=== PATIENT | female | born 2000 | race Caucasian/White ===

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

== ENCOUNTER → 2020-01-10 | Outpatient (REF) | payer OTHER ==
[2020-01-10 13:16] LABS: BASO # 0.1 10^3/uL (0.0-0.2); BASO % 0.7 % (0.0-1.0); EOS # 0.2 10^3/uL (0.0-0.5); EOS % 1.8 % (0.0-3.0); HEMATOCRIT 41.1 % (36.0-47.0); HEMOGLOBIN 12.8 g/dl (12.0-15.5); LYMPH # 2.9 10^3/uL (1.5-5.0); LYMPH % 34.7 % (24.0-44.0); MEAN CORPUSCULAR HEMOGLOBIN 25.6 pg (27.0-33.0); MEAN CORPUSCULAR HGB CONC 31.1 g/dl (32.0-36.5); MEAN CORPUSCULAR VOLUME 82.2 fl (80.0-96.0); MONO # 0.6 10^3/uL (0.0-0.8); MONO % 6.7 % (0.0-5.0); NEUTROPHILS # 4.7 10^3/uL (1.5-8.5); NEUTROPHILS % 55.9 % (36.0-66.0); PLATELET COUNT, AUTOMATED 274 10^3/uL (150-450); WHITE BLOOD COUNT 8.3 10^3/uL (4.0-10.0)
[2020-01-10 13:29] LABS: ALBUMIN 4.2 GM/DL (3.2-5.2); ALT/SGPT 16 U/L (12-78); BILIRUBIN,TOTAL 0.6 MG/DL (0.2-1.0); BLOOD UREA NITROGEN 12 MG/DL (7-18); CALCIUM LEVEL 9.7 MG/DL (8.5-10.1); CARBON DIOXIDE LEVEL 27 MEQ/L (21-32); CHLORIDE LEVEL 107 MEQ/L (98-107); CREATININE FOR GFR 0.67 MG/DL (0.55-1.30); GLUCOSE, FASTING 90 MG/DL (70-100); POTASSIUM SERUM 4.5 MEQ/L (3.5-5.1); RHEUMATOID FACTOR QUANT < 10.0 IU/ML (<15.0); SODIUM LEVEL 139 MEQ/L (136-145); THYROID STIMULATING HORMONE 0.619 uIU/ML (0.463-3.98); TOTAL PROTEIN 7.9 GM/DL (6.4-8.2)
[2020-01-10 13:35] LABS: ERYTHROCYTE SEDIMENTATION RATE 4 mm/hr (0-20)
[2020-01-11 14:12] LABS: ANTINUCLEAR ANTIBODIES DIRECT Negative (Negative)
== END ==
LOC: M LABDRWAD 12:21
PROVIDERS: ATTEND Psychiatry & Neurology Neurology
DX: R51 Headache (principal)

== ENCOUNTER → 2020-02-27 | Outpatient (CLI) | payer OTHER ==
[~2020-02-27] MED LIST changes: -ISOVUE-370 76% 100ML VIAL (Q9967) As Ordered ONE; +MAGICMW SSP; +NAPR-837 PO; +NEXP1IMP SC; +PARO20TA4 PO; +ZONI25CA13 PO
== END ==
LOC: M LABSMTC 11:41
PROVIDERS: ATTEND Family Medicine
DX: Z11.59 Encounter for screening for other viral diseases (principal)
CPT/HCPCS: C9803; U0003

== ENCOUNTER 2020-02-28 19:10 | Emergency (ER) | payer OTHER ==
[~2020-02-28] VITALS: Ht 160 cm; Wt 60.9 kg
[2020-02-28] MEDS ORDERED: PARO20TA4 PO (19:20)
[2020-02-28] MEDS ORDERED: ZONI25CA13 PO (19:20)
[2020-02-28] MEDS ORDERED: NEXP1IMP SC (19:21)
[2020-02-28] MEDS ORDERED: MAGIC MOUTHWASH SUSPENSION BTL SS STA (19:53)
[2020-02-28] MEDS ORDERED: NAPROXEN 250 MG TAB PO ONE (20:00)
[2020-02-28 20:28] LABS: BASO % 0.9 % (0.0-1.0); EOS # 0.1 10^3/uL (0.0-0.5); EOS % 2.5 % (0.0-3.0); HEMATOCRIT 38.8 % (36.0-47.0); HEMOGLOBIN 12.5 g/dl (12.0-15.5); LYMPH % 44.9 % (24.0-44.0); MEAN CORPUSCULAR HEMOGLOBIN 25.7 pg (27.0-33.0); MEAN CORPUSCULAR HGB CONC 32.2 g/dl (32.0-36.5); MEAN CORPUSCULAR VOLUME 79.8 fl (80.0-96.0); MONO # 0.5 10^3/uL (0.0-0.8); MONO % 10.9 % (0.0-5.0); NEUTROPHILS # 1.8 10^3/uL (1.5-8.5); NEUTROPHILS % 40.3 % (36.0-66.0); PLATELET COUNT, AUTOMATED 263 10^3/uL (150-450); RED BLOOD COUNT 4.86 10^6/uL (4.00-5.40); WHITE BLOOD COUNT 4.4 10^3/uL (4.0-10.0)
[2020-02-28 21:00] LABS: MONO SCRN NEGATIVE (NEGATIVE)
[2020-02-28] MEDS ORDERED: NAPR-837 PO (21:28)
[2020-02-28] MEDS ORDERED: MAGICMW SSP (21:28)
[2020-02-28 22:01] VITALS: BP 111/69
--- NOTE | 2020-02-29 08:22 | REP ---
Portable chest x-ray: Single view. History: Shortness of breath. Findings: The lungs are well inflated and clear. The pleural angles are sharp. Heart size is normal. Pulmonary vasculature is not increased. No significant bony abnormality is seen. Impression: Negative portable chest x-ray. Electronically Signed by Faisal Walsh MD 02/29/2020 08:13 A
== END 2020-02-28 22:02 | disposition home or self-care (01) ==
LOC: M ED 19:10
DX: R59.0 Localized enlarged lymph nodes (principal); R07.0 Pain in throat; R06.02 Shortness of breath

== ENCOUNTER → 2021-03-05 | Outpatient (REF) | payer OTHER | LOC: M SFHCADAM 10:40 | PROVIDERS: ATTEND Family Medicine | DX: J02.9 Acute pharyngitis, unspecified (principal) ==

== ENCOUNTER → 2021-04-12 | Outpatient (REF) | payer OTHER | LOC: M SFHCADAM 14:40 | PROVIDERS: ATTEND Physician Assistant Medical | DX: J02.9 Acute pharyngitis, unspecified (principal); R53.83 Other fatigue ==

== ENCOUNTER → 2021-06-23 | Outpatient (CLI) | payer OTHER | LOC: M LABSMTC 11:31 | PROVIDERS: ATTEND Anesthesiology | DX: Z11.52 Encounter for screening for COVID-19 (principal); Z20.822 Contact with and (suspected) exposure to COVID-19 ==

== ENCOUNTER 2021-06-28 09:48 | Day surgery (SDC) | payer OTHER ==
[~2021-06-28] VITALS: Ht 162.6 cm; Wt 69.9 kg
[~2021-06-28 09:48] MED LIST changes: +PAXI10TA12 PO
--- OUTSIDE RECORDS SUMMARY | 2021-06-28 09:56 | CCD ---
Author Author [facility] Organization [facility] Address Unknown Phone Unavailable Care Team Providers Care Tender Labor Name Role Phone Aurelia Powers Unavailable PROBLEMS Type Condition ICD9-CM Code QRH62-PR Code Onset Dates Condition S tatus W/U Status Risk SNOMED Code Notes Problem Depression, unspecified depression type F32.9 Active confirmed 25629069 Problem Gastroesophageal reflux dise ase, unspecified whether esophagitis present K21.9 Active confirmed 684851400 Problem Insomnia, unspecified type G47.00 Active confirmed 613275693 Problem Primary insomnia F51.01 Active confirmed 397 2004 ALLERGIES Allergen (clinical drug ingredient) Drug/Non Drug Allergy do cumented on EMR Reaction Allergy Type Onset Date Status [place] strawberry oral discomfort Non Drug Allergy Act adam oranges oral discomfort Non Drug Allergy Act adam ENCOUNTERS from 2000 to 2021-04-19 Encounter Location Date Provider Diagnosis [address] [place] [address] Apr, Aurelia Powers Pharyngitis, unspecified etiology J02.9 ; Strep pharyngitis J02.0 and Fatigue, unspecified type R53.83 IMMUNIZATIONS Vaccine Route Administration Date Status Hepatitis B Ped & Adol 0.5mL Engerix-B Unknown January 22 001 Administered Hepatitis B Ped & Adol 0.5mL Engerix-B Unknown April 10, 2002 Administered Hepatitis B Ped & Adol 0.5mL Engerix-B Unknown Jul 13 005 Administered TDAP Unknown Sep 23, 2011 Administered Imm: IPV 0.5mL Polio Unknown January 22, 2001 Administere d Imm: IPV 0.5mL Polio Unknown April 10, 2002 Administere d Imm: IPV 0.5mL Polio Unknown Jul 13, 2005 Administere d Hepatitis B Ped & Adol 0.5mL Engerix-B Unknown 2000 Administered DTAP 0.5mL Infanrix Unknown 2000 Administered Gardasil Unknown May 29, 2014 Administered Varicella 0.5mL VariVax Unknown February 18, 2002 Administ ered HIB 0.5mL Unknown February 18, 2002 Administered HIB 0.5mL Unknown April 03, 2001 Administered HIB 0.5mL Unknown January 22, 2001 Administered HIB 0.5mL Unknown 2000 Administered DTAP 0.5mL Infanrix Unknown Jul 13, 2005 Administered DTAP 0.5mL Infanrix Unknown November 25, 2002 Administered DTAP 0.5mL Infanrix Unknown April 03, 2001 Administered DTAP 0.5mL Infanrix Unknown January 22, 2001 Administered Varicella 0.5mL VariVax Unknown February 16, 2009 Administ ered Influenza Nasal Unknown May 29, 2014 Administered Meningococcal Unknown Sep 23, 2011 Administered Influenza 6mo & up Fluzone IM Intramuscular Jun 23, 2016 Admi nistered Hepatitis A Ped & Adol 0.5mL Havrix Unknown January 06 04 Administered Gardasil IM Intramuscular Jun 23, 2016 Administered Influenza 6mo & up Fluzone Unknown Jun 03, 2015 Admin istered Meningococcal 0.5mL Menveo Groups A,C,Y & W-135 IM Intramuscular Aug 10, 2017 Administered MMR 0.5mL Unknown March 13, 2002 Administered Meningococcal B 0.5mL Bexsero IM Intramuscular Aug 10, 2017 A dministered MMR 0.5mL Unknown Jul 13, 2005 Administered Meningococcal B 0.5mL Bexsero IM Intramuscular Aug 31, 2018 A dministered Hepatitis A Ped & Adol 0.5mL Havrix Unknown Apr 24, 2006 Administered Pneumococcal 0.5mL Prevnar 13 Unknown April 03, 2001 Ad ministered Imm: IPV 0.5mL Polio Unknown 2000 Administere d SOCIAL HISTORY Tobacco Use: Social History Observation Description Date Details (start date - stop date) Never Smoker Sex Assigned At : Social History Observation Description Sex Assigned At Female Education: Question Answer Notes Level of Education: Not finished High School 12 grade Audit Question Answer Notes Total Score: 0 Interpretation: Alcohol Education Sexual Hx: Question Answer Notes Had sex in the last 12 months (vaginal, oral, or anal)? No LMP: 07/12/16 Have you ever had an STD? No Drug and Alcohol Question Answer Notes Total Score: 0 Interpretation: No problems reported Alcohol Screening: Question Answer Notes Did you have a drink containing alcohol in the past year? No Points 0 Interpretation Negative Tobacco Use: Question Answer Notes Are you a: never smoker REASON FOR REFERRAL No Information VITAL SIGNS Weight 156 lbs Apr, Height 63 in Apr, BMI 27.63 kg/m2 Apr, Heart Rate 126 /min Apr, Respiratory Rate 18 /min Apr, Temperature 98 degrees Fahrenheit Apr, Oximetry 95 Apr, Blood pressure systolic 98 mm Hg Apr, Blood pressure diastolic 60 mm Hg Apr, MEDICATIONS Medication SIG (Take, Route, Frequency, Duration) Notes Start Da te End Date Status PARoxetine HCl 10 MG 1 tablet in the morning Orally Once a day f or 10 day(s) Feb, Active Paxil 10 MG 1 tablet in the morning Orally Once a day for 30 day(s) Mar, Not-Taking Amoxicillin 500 MG 1 tablet Orally Three times a day for 7 day(s ) Apr, Active PROCEDURES No Information RESULTS Component Value Reference Range Rapid Strep (Alicia Strep A+ RUSS) Reviewed date:04/12/2021 16:45:55 Interpretation: Performing Lab:[facility] [place], [place] [address] Internal Controls Performed (Y/N) yes Rapid Strep (Alicia Strep A+ RUSS) positive Result (Positive/Negative) ALICIA COVID AG (Point of Care) Reviewed date:04/12/2021 16:45:48 Interpretation: Performing Lab:[facility], ,[place] [address] ALICIA COVID ANTIGEN negative REASON FOR VISIT lathargic MEDICAL (GENERAL) HISTORY Type Description Date Medical History sleep study with delayed sle ep onset but otherwise normal (04/2018) Medical History acne Medical History depression Surgical History wisdom tooth extraction 2016 Goals Section No Information Health Concerns No Information MEDICAL EQUIPMENT No Information MENTAL STATUS No Information FUNCTIONAL STATUS No Information ASSESSMENTS Encounter Date Diagnosis Assessment Notes Treatment Notes Treatm ent Clinical Notes Apr, Pharyngitis, unspecified etiology (ICD-10 - J02. 9) Apr, Strep pharyngitis (ICD-10 - J02.0) You have strep throat. Antibiotics will be prescribed. Finish all medication. Supportive care, fluids, rest, frequent hand washing. Take Tylenol or Ibuprofen as needed. Probiotics over the counter and/or yogurt may help with abdominal discomfort while on antibiotics. You should be on the antibiotics for 24 hours before returning to school or work. Change your toothbrush after being on the antibiotic for 24 hours. Follow up with your family doctor in 1 week if symptoms persist. Apr, Fatigue, unspecified type (ICD-10 - R53.83) PLAN OF TREATMENT Medication Medication Name Sig Start Date Stop Date Amoxicillin 500 MG 1 tablet Orally Three times a day for 7 day(s ) Apr, Treatment Notes Assessment Notes Clinical Notes Strep pharyngitis You have strep throat. Antib iotics will be prescribed. Finish all medication. Supportive care, fluids, rest, frequent hand washing. Take Tylenol or Ibuprofen as needed. Probiotics over the counter and/or yogurt may help with abdominal discomfort while on antibiotics. You should be on the antibiotics for 24 hours before returning to school or work. Change your toothbrush after being on the antibiotic for 24 hours. Follow up with your family doctor in 1 week if symptoms persist. Treatment Notes Test Name Order Date Rapid Flu (Alicia Influenza A+B RUSS) 2021-04-12 Coronavirus 2019 NOSE (Send Out) COVID 2021-04-12 Next Appt Details needs f/u with CDT 4 w from 03/25 appt. Nini vidal: Insurance Providers Payer Name Payer Address Payer Phone Insured Name Patient Relati onship to Insured Coverage Start Date Coverage End Date [place] [phone] [employer] self
--- OUTSIDE RECORDS SUMMARY | 2021-06-28 09:56 | CCD ---
Author Author [facility] Organization [facility] Address Unknown Phone Unavailable Care Team Providers Care Medical Health Researcher Name Role Phone Roxie Paulino Unavailable PROBLEMS Type Condition ICD9-CM Code [id number] Code Onset Dates Condition S tatus W/U Status Risk SNOMED Code Notes Problem Depression, unspecified depression type F32.9 Active confirmed [id number] Problem Gastroesophageal reflux dise ase, unspecified whether esophagitis present K21.9 Active confirmed 341035649 Problem Insomnia, unspecified type G47.00 Active confirmed 783318207 Problem Primary insomnia F51.01 Active confirmed 397 2004 ALLERGIES Allergen (clinical drug ingredient) Drug/Non Drug Allergy do cumented on EMR Reaction Allergy Type Onset Date Status [place] strawberry oral discomfort Non Drug Allergy Act adam oranges oral discomfort Non Drug Allergy Act adam ENCOUNTERS from 2000 to 2021-05-04 Encounter Location Date Provider Diagnosis [address] [phone] [place] [address] Apr, Roxie Paulino IMMUNIZATIONS Vaccine Route Administration Date Status Hepatitis B Ped & Adol 0.5mL Engerix-B Unknown January 22 001 Administered Hepatitis B Ped & Adol 0.5mL Engerix-B Unknown April 10, 2002 Administered Hepatitis B Ped & Adol 0.5mL Engerix-B Unknown Jul 13 Administered TDAP Unknown Sep 23, 2011 Administered [...] VariVax Unknown February 16, 2009 Administ ered MMR 0.5mL Unknown Jul 13, 2005 Administered Influenza Nasal Unknown May 29, 2014 Administered Meningococcal Unknown Sep 23, 2011 Administered Hepatitis A Ped & Adol 0.5mL Havrix Unknown January 06 04 Administered Gardasil IM Intramuscular Jun 23, 2016 Administered Influenza 6mo & up Fluzone Unknown Jun 03, 2015 Admin istered Meningococcal 0.5mL Menveo Groups A,C,Y & W-135 IM Intramuscular Aug 10, 2017 Administered Influenza 6mo & up Fluzone IM Intramuscular Jun 23, 2016 Admi nistered Meningococcal B 0.5mL Bexsero IM Intramuscular Aug 10, 2017 A dministered MMR 0.5mL Unknown March 13, 2002 Administered [...] REASON FOR REFERRAL No Information VITAL SIGNS No information MEDICATIONS Medication SIG (Take, Route, Frequency, Duration) [...] ) Apr, Active PROCEDURES No Information RESULTS No Results REASON FOR VISIT infection in tonsils? MEDICAL (GENERAL) HISTORY Type Description Date Medical History sleep study with delayed sle ep onset but otherwise normal (04/2018) Medical History acne Medical History depression Surgical History wisdom tooth extraction 2016 Goals Section No Information Health Concerns No Information MEDICAL EQUIPMENT No Information MENTAL STATUS No Information FUNCTIONAL STATUS No Information ASSESSMENTS No Information PLAN OF TREATMENT Medication Medication Name Sig Start Date Stop Date Amoxicillin 500 MG 1 tablet Orally Three times a day for 7 day(s ) Apr, Insurance Providers Payer Name Payer Address Payer Phone Insured Name Patient Relati onship to Insured Coverage Start Date Coverage End Date [address] [phone] [employer] self
--- OUTSIDE RECORDS SUMMARY | 2021-06-28 09:56 | CCD | Continuity of Care Document ---
Author Author Sharron HAYS MD Organization Unknown Address [address] [facility], [address] [place] [address] Phone [phone] Care Team Providers Care Eligibility Technician Name Role Phone Roxie Paulino D.O. AUTM AUTM Unavailable Problems Active Problems Provider Date Chronic adenotonsillitis Jacob Hays MD Onset: 06/02/20 21 Social History Type Date Description Comments Sex Unknown ETOH Use Denies alcohol use Tobacco Use Start: Unknown Patient has never smoked Recreational Drug Use Denies Drug Use Exercise Type/Frequency Occasional Mild Exercise Allergies, Adverse Reactions, Alerts Description No Known Drug Allergies Medications Active Medications SIG Qnty Indications Ordering Provide r Date Paroxetine HCL 10mg Tablets 1 by mouth every day Roxie Theodore DO Immunizations Description No Information Available Vital Signs Date Vital Result Comment 06/02/2021 9:31am BP Systolic 102 mmHg BP Diastolic 70 mmHg Heart Rate 105 /min O2 % BldC Oximetry 98 % Height 64 inches 5'4" Weight 156.00 lb BMI (Body Mass Index) 26.8 kg/m2 [place] Body Weight 120 lb Weight 70.762 kg BSA (Body Surface Area) 1.76 m2 09/23/2020 1:47pm Height 64 inches 5'4" Weight 145.00 lb BMI (Body Mass Index) 24.9 kg/m2 [place] Body Weight 120 lb Weight 65.772 kg BSA (Body Surface Area) 1.71 m2 Results Description No Information Available Procedures Description No Information Available Medical Devices Description No Information Available Encounters Description No Information Available Assessments Date Code Description Provider 06/02/2021 J35.03 Chronic tonsillitis and adenoidi tis Jacob Hays MD Plan of Treatment 06/02/2021 - Jacob Hays MD* J35.03 Chronic tonsillitis and adenoiditis* Comments:* We discussed the options of conservative measures rather than surgery. This is contributing to her mouth breathing and difficulty swallowing large pieces of meat. We reviewed the risks and benefits and all questions were answered. She indicated that she would like to proceed. They will avoid any NSAID type products and Multivite for 2 weeks prior to the procedure. We will arrange this in the near future. As soon as schedules permits. She was informed she has to be infection free 3 weeks prior to the surgery. Functional Status Description No Information Available Mental Status Mental Condition Comment Date Status Cognitive ability not impaired A ctive Referrals Description No Information Available
--- OUTSIDE RECORDS SUMMARY | 2021-06-28 09:56 | CCD ---
Author Author [facility] Organization [facility] Address Unknown Phone Unavailable Care Team Providers Care Steam Plant Records Clerk Name Role Phone Roxie Paulino Unavailable PROBLEMS Type Condition ICD9-CM Code MET24-LI Code Onset Dates Condition S tatus W/U Status Risk SNOMED Code Notes Problem Depression, unspecified depression type F32.9 Active confirmed 79584289 Problem Gastroesophageal reflux dise ase, unspecified whether esophagitis present K21.9 Active confirmed 219249837 Problem Insomnia, unspecified type G47.00 Active confirmed 788821078 Problem Primary insomnia F51.01 Active confirmed 397 2004 ALLERGIES Allergen (clinical drug ingredient) Drug/Non Drug Allergy do cumented on EMR Reaction Allergy Type Onset Date Status strawberry oral discomfort Non Drug Allergy Act adam oranges oral discomfort Non Drug Allergy Act adam ENCOUNTERS from 2000 to 2021-04-07 Encounter Location Date Provider Diagnosis [address] [place] [address] Mar, Roxie Paulino Depression, unspecified depression type F32.9 IMMUNIZATIONS Vaccine Route Administration Date Status Hepatitis B Ped & Adol 0.5mL Engerix-B Unknown April 10, 2002 Administered Hepatitis B Ped & Adol 0.5mL Engerix-B Unknown Jul 13 005 Administered TDAP Unknown Sep 23, 2011 Administered Gardasil Unknown May 29, 2014 Administered Imm: IPV 0.5mL Polio Unknown April 10, 2002 Administere d Imm: IPV 0.5mL Polio Unknown Jul 13, 2005 Administere d Hepatitis B Ped & Adol 0.5mL Engerix-B Unknown 2000 Administered Hepatitis B Ped & Adol 0.5mL Engerix-B Unknown January 22 001 Administered DTAP 0.5mL Infanrix Unknown 2000 Administered Varicella 0.5mL VariVax Unknown February 18, 2002 Administ ered Influenza 6mo & up Fluzone IM Intramuscular Jun 23, 2016 Admi nistered HIB 0.5mL Unknown February 18, 2002 Administered HIB 0.5mL Unknown April 03, 2001 Administered HIB 0.5mL Unknown January 22, 2001 Administered HIB 0.5mL Unknown 2000 Administered DTAP 0.5mL Infanrix Unknown Jul 13, 2005 Administered DTAP 0.5mL Infanrix Unknown November 25, 2002 Administered DTAP 0.5mL Infanrix Unknown April 03, 2001 Administered DTAP 0.5mL Infanrix Unknown January 22, 2001 Administered Gardasil IM Intramuscular Jun 23, 2016 Administered Influenza Nasal Unknown May 29, 2014 Administered Meningococcal Unknown Sep 23, 2011 Administered Hepatitis A Ped & Adol 0.5mL Havrix Unknown January 06 04 Administered Hepatitis A Ped & Adol 0.5mL Havrix Unknown Apr 24, 2006 Administered Varicella 0.5mL VariVax Unknown February 16, 2009 Administ ered Influenza 6mo & up Fluzone Unknown Jun 03, 2015 Admin istered Meningococcal 0.5mL Menveo Groups A,C,Y & W-135 IM Intramuscular Aug 10, 2017 Administered MMR 0.5mL Unknown March 13, 2002 Administered Meningococcal B 0.5mL Bexsero IM Intramuscular Aug 10, 2017 A dministered MMR 0.5mL Unknown Jul 13, 2005 Administered Meningococcal B 0.5mL Bexsero IM Intramuscular Aug 31, 2018 A dministered Pneumococcal 0.5mL Prevnar 13 Unknown April 03, 2001 Ad ministered Imm: IPV 0.5mL Polio Unknown 2000 Administere d Imm: IPV 0.5mL Polio Unknown January 22, 2001 Administere d SOCIAL HISTORY Tobacco Use: Social [...] FOR REFERRAL No Information VITAL SIGNS Weight 157 lbs Mar, Height 63 in Mar, BMI 27.81 kg/m2 Mar, Heart Rate 109 /min Mar, Respiratory Rate 18 /min Mar, Temperature 98.0 degrees Fahrenheit Mar, Oximetry 96 Mar, Blood pressure systolic 100 mm Hg Mar, Blood pressure diastolic 72 mm Hg Mar, MEDICATIONS Medication SIG (Take, Route, Frequency, Duration) Notes Start Da te End Date Status PARoxetine HCl 10 MG 1 tablet in the morning Orally Once a day f or 10 day(s) Feb, Active Paxil 10 MG 1 tablet in the morning Orally Once a day for 30 day(s) Mar, Active PROCEDURES No Information RESULTS No Results REASON FOR VISIT 3 week MEDICAL (GENERAL) HISTORY Type Description Date Medical History sleep study with delayed sle ep onset but otherwise normal (04/2018) Medical History acne Medical History depression Surgical History wisdom tooth extraction 2016 Goals Section No Information Health Concerns No Information MEDICAL EQUIPMENT No Information MENTAL STATUS No Information FUNCTIONAL STATUS No Information ASSESSMENTS Encounter Date Diagnosis Assessment Notes Treatment Notes Treatm ent Clinical Notes Mar, Depression, unspecified depression type (ICD-10 - F32.9) She has been on 10 mg for a week now. Will continue at this dose for a month, and then have her stop it. I think that she is feeling poorly from withdrawal. She feels that her mood has been more stable as she has decreased her Paxil. I continue to encourage her to followup with Behavioral Health. PLAN OF TREATMENT Medication Medication Name Sig Start Date Stop Date Paxil 10 MG 1 tablet in the morning Orally Once a da y for 30 day(s) Mar, Treatment Notes Assessment Notes Clinical Notes Depression, unspecified depression type She has been on 10 mg for a week now. Will continue at this dose for a month, and then have her stop it. I think that she is feeling poorly from withdrawal. She feels that her mood has been more s table as she has decreased her Paxil. I continue to encourage her to followup with Behavioral Health. Next Appt Details 4 Weeks Reason:f/u Follow Up:4 Weeksf/u Insurance Providers Payer Name Payer Address Payer Phone Insured Name Patient Relati onship to Insured Coverage Start Date Coverage End Date [address] [phone] [employer] self
--- OUTSIDE RECORDS SUMMARY | 2021-06-28 09:56 | CCD ---
Author Author [facility] Organization [facility] Address Unknown Phone Unavailable Care Team Providers Care Tile Sorter Name Role Phone Feola, T Barbara PA Unavailable Unavailable Feola, T Barbara PA Unavailable Unavailable Feola, T Barbara PA Unavailable Unavailable Feola, T Barbara PA Unavailable Unavailable Feola, T Barbara PA Unavailable Unavailable Feola, T Barbara PA Unavailable Unavailable Feola, T Barbara PA Unavailable Unavailable Feola, T Barbraa PA Unavailable Unavailable Feola, T Barbara PA Unavailable Unavailable Feola, T Barbara PA Unavailable Unavailable Feola, T Barbara PA Unavailable Unavailable Feola, T Barbara PA Unavailable Unavailable Feola, T Barbara PA Unavailable Unavailable Feola, T Barbara PA Unavailable Unavailable Feola, T Barbara PA Unavailable Unavailable Feola, T Barbara PA Unavailable Unavailable Feola, T Barbara PA Unavailable Unavailable Feola, T Barbara PA Unavailable Unavailable Feola, T Barbara PA Unavailable Unavailable Feola, T Barbara PA Unavailable Unavailable Feola, T Barbara PA Unavailable Unavailable Feola, T Barbara PA Unavailable Unavailable Feola, T Barbara PA Unavailable Unavailable Feola, T Barbara PA Unavailable Unavailable Feola, T Barbara PA Unavailable Unavailable Feola, T Barbara PA Unavailable Unavailable Feola, T Barbara PA Unavailable Unavailable Feola, T Barbara PA Unavailable Unavailable Feola, T Barbara PA Unavailable Unavailable Feola, T Barbara PA Unavailable Unavailable Feola, T Barbara PA Unavailable Unavailable Feola, T Barbara PA Unavailable Unavailable Feola, T Barbara PA Unavailable Unavailable Feola, T Barbara PA Unavailable Unavailable Feola, T Barbara PA Unavailable Unavailable Feola, T Barbara PA Unavailable Unavailable Feola, T Barbara PA Unavailable Unavailable Feola, T Barbara PA Unavailable Unavailable Feola, T Barbara PA Unavailable Unavailable Feola, T Barbara PA Unavailable Unavailable Feola, T Barbara PA Unavailable Unavailable Naresh Montoya MD Unavailable Unavailable ArkportNaresh MD Unavailable Unavailable ArkportNaresh MD Unavailable Unavailable Naresh Montoya MD Unavailable Unavailable Naresh Montoya MD Unavailable Unavailable ArkportNaresh kothari MD Unavailable Unavailable ArkportNaresh kothari MD Unavailable Unavailable ArkportNaresh MD Unavailable Unavailable ArkportNaresh MD Unavailable Unavailable ArkportNaresh MD Unavailable Unavailable ArkportNaresh MD Unavailable Unavailable ArkportNaresh MD Unavailable Unavailable ArkportNaresh MD Unavailable Unavailable ArkportNaresh MD Unavailable Unavailable ArkportNaresh kothari MD Unavailable Unavailable ArkportNaresh MD Unavailable Unavailable ArkportNaresh MD Unavailable Unavailable ArkportNaresh MD Unavailable Unavailable ArkportNaresh MD Unavailable Unavailable ArkportNaresh MD Unavailable Unavailable ArkportNaresh MD Unavailable Unavailable ArkportNaresh MD Unavailable Unavailable ArkportNaresh kothari MD Unavailable Unavailable [place]port Naresh MD Unavailable Unavailable ArkportNaresh MD Unavailable Unavailable ArkportNaresh MD Unavailable Unavailable [place] Naresh MD Unavailable Unavailable ArkportNaresh MD Unavailable Unavailable ArkportNaresh kothari MD Unavailable Unavailable Naresh Montoya MD Unavailable Unavailable Jadiel Tong MD Unavailable Unavailable Jadiel Tong MD Unavailable Unavailable Jadiel Tong MD Unavailable Unavailable Jadiel Tong MD Unavailable Unavailable Jadiel Tong MD Unavailable Unavailable Jadiel Tong MD Unavailable Unavailable Jadiel Tong MD Unavailable Unavailable Jadiel Tong MD Unavailable Unavailable Jadiel Tong MD Unavailable Unavailable Jadiel Tong MD Unavailable Unavailable Jadiel Tong MD Unavailable Unavailable Jadiel Tong MD Unavailable Unavailable Jadiel Tong MD Unavailable Unavailable Jadiel Tong MD Unavailable Unavailable Jadiel Tong MD Unavailable Unavailable Jadiel Tong MD Unavailable Unavailable Jadiel Tong MD Unavailable Unavailable Jadiel Tong MD Unavailable Unavailable Jadiel Tong MD Unavailable Unavailable Jadiel Tong MD Unavailable Unavailable Jadiel Tong MD Unavailable Unavailable Jadiel Tong MD Unavailable Unavailable Jadiel Tong MD Unavailable Unavailable Jadiel Tong MD Unavailable Unavailable Jadiel Tong MD Unavailable Unavailable Jadiel Tong MD Unavailable Unavailable Jadiel Tong MD Unavailable Unavailable Jadiel Tong MD Unavailable Unavailable Jadiel Tong MD Unavailable Unavailable Jadiel Tong MD Unavailable Unavailable Jadiel Tong MD Unavailable Unavailable Jadiel Tong MD Unavailable Unavailable Jadiel Tong MD Unavailable Unavailable Jadiel Tong MD Unavailable Unavailable Jadiel Tong MD Unavailable Unavailable Jadiel Tong MD Unavailable Unavailable Jadiel Tong MD Unavailable Unavailable Jadiel Tong MD Unavailable Unavailable Jadiel Tong MD Unavailable Unavailable Jadiel Tong MD Unavailable Unavailable Jadiel Tong MD Unavailable Unavailable Jadiel Tong MD Unavailable Unavailable Jadiel Tong MD Unavailable Unavailable Jadiel Tong MD Unavailable Unavailable Jadiel Tong MD Unavailable Unavailable Jadiel Tong MD Unavailable Unavailable Jadiel Tong MD Unavailable Unavailable Jadiel Tong MD Unavailable Unavailable Jadiel oTng MD Unavailable Unavailable Jadiel Tong MD Unavailable Unavailable Jadiel Tong MD Unavailable Unavailable Jadiel Tong MD Unavailable Unavailable Jadiel Tong MD Unavailable Unavailable Jadiel Tong MD Unavailable Unavailable Jadiel Tong MD Unavailable Unavailable Jadiel Tong MD Unavailable Unavailable Jadiel Tong MD Unavailable Unavailable Jadiel Togn MD Unavailable Unavailable Re-disclosure Warning The records that you are about to access may contain information from federally-assisted alcohol or drug abuse programs. If such information is present, then the following federally mandated warning applies: This information has been disclosed to you from records protected by federal confidentiality rules (42 CFR part 2). The federal rules prohibit you from making any further disclosure of this information unless further disclosure is expressly permitted by the written consent of the person to whom it pertains or as otherwise permitted by 42 CFR part 2. A general authorization for the release of medical or other information is NOT sufficient for this purpose. The Federal rules restrict any use of the information to criminally investigate or prosecute any alcohol or drug abuse patient.The records that you are about to access may contain highly sensitive health information, the redisclosure of which is protected by Article 27-F of the [facility] Public Health law. If you continue you may have access to information: Regarding HIV / AIDS; Provided by facilities licensed or operated by the [facility] Office of Mental Health; or Provided by the [facility] Office for People With Developmental Disabilities. If such information is present, then the following [facility] mandated warning applies: This information has been disclosed to you from confidential records which are protected by state law. State law prohibits you from making any further disclosure of this information without the specific written consent of the person to whom it pertains, or as otherwise permitted by law. Any unauthorized further disclosure in violation of state law may result in a fine or senior care sentence or both. A general authorization for the release of medical or other information is NOT sufficient authorization for further disc losure. Family History Family Member Name Family Member Gender Family Member Status Date o f Status Description Data Source(s) Unknown Male Problem MEDENT ([facility]) Unknown Unknown Problem [facility] Encounters Encounter Providers Location Date Indications Data Source(s ) Outpatient Attender: Barbara GOLD 021 11:11:10 AM EDT - 05/03/2021 12:24:10 PM EDT [facility] ([facility] ) [place] [address] [facility] [address] 05/03/2021 12:00:00 AM EDT eCW1 ([facility]) Outpatient [address] [facility] [address] 04/12/2021 12:00:00 AM EDT eCW1 ([facility]) Outpatient [address] [facility] [address] 03/25/2021 12:00:00 AM EDT eCW1 ([facility]) Outpatient 03/20/2021 10:17:54 PM EDT - 021 10:58:07 PM EDT [facility] ([facility]) Outpatient [address] [facility] [address] 03/05/2021 12:00:00 AM EDT eCW1 ([facility]) [place] [address] [facility] [address] 12/04/2020 12:00:00 AM EDT eCW1 ([facility]) [place] [address] [facility] [address] 11/27/2020 12:00:00 AM EDT eCW1 ([facility]) TeleMedicine Phone E/M by Phys 11-20 Min [address] [place] [address] 11/26/2020 12:00:00 AM EDT eCW1 ([facility]) Unknown [address] [facility] [address] 10/26/2020 12:00:00 AM EST eCW1 ([facility]) TeleMedicine Phone E/M by Phys 11-20 Min [address] [place] [address] 10/08/2020 12:00:00 AM EST eCW1 ([facility]) [place] [address] [facility] [place] [address] 10/06/2020 12:00:00 AM EST eCW1 ([facility]) Unknown [address] [facility] [address] 10/06/2020 12:00:00 AM EST eCW1 ([facility]) [place] [address] [facility] [place] [address] 09/02/2020 12:00:00 AM EST eCW1 ([facility]) Unknown [address] [facility] [address] 09/02/2020 12:00:00 AM EST eCW1 ([facility]) Outpatient Attender: Jadiel Tong MD [email or web address] 07/13 12:00:00 AM EST [facility] Outpatient Attender: Naresh Quispe/Jan/Alberto/Farhan camacho 07/15/2020 07:20:00 AM EST MEDENT ([facility]) [place] [address] [facility] [address] 06/29/2020 12:00:00 AM EDT eCW1 ([facility]) Unknown [address] [facility] [address] 06/18/2020 12:00:00 AM EDT eCW1 ([facility]) Outpatient [address] [facility] [address] 06/11/2020 12:00:00 AM EDT eCW1 ([facility]) Immunizations Vaccine Date Status Description Data Source(s) COVID-19 VACCINE Roe 12/20/2020 12:00:00 AM EDT completed [facility] Vaccine Series Complete: YESThis Data wa s Submitted to [facility]. Medications Medication Brand Name Start Date Product Form Dose Route Admi nistrative Instructions Pharmacy Instructions Status Indications Reaction Description Data Source(s) 20 mg 05/03/2021 12:00:00 AM EDT tablet 15 TAKE THREE TABLETS BY MOUTH EVERY DAY FOR 5 DAYS TAKE THREE TABLETS BY MOUTH EVERY DAY FOR 5 DAYS SOLD: 05/03/2021 [facility] Amoxicillin 875 MG / Clavulanate 125 MG Oral Tablet 87 5-125 mg AMOXICILLIN/POTASSIUM CLAV 05/03/2021 12:00:00 AM EDT tablet 20 TAKE ONE TABLET BY MOUTH TWICE A DAY FOR 10 DAYS TAKE ONE TABLET BY MOUTH TWICE A DAY FOR 10 DAYS SOLD: 05/03/2021 [facility] Amoxicillin 500 MG Oral Tablet Amoxicillin 500 MG 04/12/2021 12:00: 00 AM EDT 1.0 {tablet} active Amoxicillin 500 MG eCW1 ([facility]) 500 mg 04/12/2021 12:00:00 AM EDT capsule 21 TAKE ONE CAPSULE BY MOUTH THREE TIMES A DAY FOR 7 DAYS TAKE ONE CAPSULE BY MOUTH THREE TIMES A DAY FOR 7 DAYS SOLD: 04/12/2021 [facility] Amoxicillin 500 MG Oral Tablet Amoxicillin 500 MG 04/12/2021 12:00: 00 AM EDT 1.0 {tablet} active Amoxicillin 500 MG eCW1 ([facility]) Paroxetine Hydrochloride 10 MG Oral Tablet PAROXETINE HCL 03/26/2021 12:00:00 AM EDT tablet 30 TAKE ONE TABLET BY MOUTH SILVIANO MORNING TAKE ONE TABLET BY MOUTH EVERY MORNING SOLD: 03/26/2021 [facility] Paroxetine 10 MG Oral Tablet [Paxil] Paxil 10 MG Paxil 10 MG 03/25/2021 12:00:00 AM EDT 1.0 {tablet_in_the_morning} active Paxil 10 MG eCW1 ([facility]) Paroxetine 10 MG Oral Tablet [Paxil] Paxil 10 MG Paxil 10 MG 03/25/2021 12:00:00 AM EDT 1.0 {tablet_in_the_morning} suspended Paxil 10 MG eCW1 ([facility]) Paroxetine 10 MG Oral Tablet [Paxil] Paxil 10 MG Paxil 10 MG 03/25/2021 12:00:00 AM EDT 1.0 {tablet_in_the_morning} suspended Paxil 10 MG eCW1 ([facility]) PARoxetine HCl 10 MG PARoxetine HCl 10 MG 03/05/2021 12:00:00 AM ED T 1.0 {tablet_in_the_morning} active PARoxeti ne HCl 10 MG eCW1 ([facility]) Paroxetine Hydrochloride 10 MG Oral Tablet PAROXETINE HCL 03/05/2021 12:00:00 AM EDT tablet 10 TAKE ONE TABLET BY MOUTH SILVIANO DAY IN THE MORNING TAKE ONE TABLET BY MOUTH EVERY DAY IN THE MORNING SOLD: 03/12/2021 [facility] PARoxetine HCl 10 MG PARoxetine HCl 10 MG 03/05/2021 12:00:00 AM ED T 1.0 {tablet_in_the_morning} active PARoxeti ne HCl 10 MG eCW1 ([facility]) PARoxetine HCl 10 MG PARoxetine HCl 10 MG 03/05/2021 12:00:00 AM ED T 1.0 {tablet_in_the_morning} active PARoxeti ne HCl 10 MG eCW1 ([facility]) PARoxetine HCl 10 MG PARoxetine HCl 10 MG 03/05/2021 12:00:00 AM ED T 1.0 {tablet_in_the_morning} active PARoxeti ne HCl 10 MG eCW1 ([facility]) Paroxetine 30 MG Oral Tablet [Paxil] Paxil 30 MG Paxil 30 MG 10/26/2020 12:00:00 AM EST 1.0 {tablet_in_the_morning} active Paxil 30 MG eCW1 ([facility]) Paroxetine 30 MG Oral Tablet [Paxil] Paxil 30 MG Paxil 30 MG 10/26/2020 12:00:00 AM EST 1.0 {tablet_in_the_morning} active Paxil 30 MG eCW1 ([facility]) Paroxetine 30 MG Oral Tablet [Paxil] Paxil 30 MG Paxil 30 MG 10/26/2020 12:00:00 AM EST 1.0 {tablet_in_the_morning} active Paxil 30 MG eCW1 ([facility]) Paroxetine 30 MG Oral Tablet [Paxil] Paxil 30 MG Paxil 30 MG 10/26/2020 12:00:00 AM EST 1.0 {tablet_in_the_morning} active Paxil 30 MG eCW1 ([facility]) Amoxicillin 500 MG / Clavulanate 125 MG Oral Tablet [Augment in] Augmentin 09/23/2020 12:00:00 AM EST ORAL active MEDENT ([facility], ) Dexamethasone 0.1 MG/ML Oral Solution Dexamethasone 07/15/2020 12:00:00 AM EST active MEDENT ( [facility], ) Omeprazole 40 MG Delayed Release Oral Ca psule omeprazole (PRILOSEC) 40 MG capsule omeprazole (PRILOSEC) 40 MG capsule 07/15/2020 12:00:00 AM EST active [facility] Omeprazole 40 MG Delayed Release Oral Capsule Omeprazole 07/15/2020 12:00:00 AM EST ORAL active MEDENT ([facility] ) PARoxetine (PAXIL) 20 MG tablet [address]-6 07/14/2020 12:00:00 AM EST active [facility] 20 mg 06/12/2020 12:00:00 AM EDT capsule,delayed release (DR/EC) 30 TAKE ONE CAPSULE BY MOUTH 30 MINUTES BEFORE MORNING MEAL TAKE ONE CAPSULE BY MOUTH 30 MINUTES BEFORE MORNING MEAL SOLD: 06/12/2020 [facility] Omeprazole 20 MG Delayed Release Oral Capsule Omeprazole 20 MG 06/11/2020 12:00:00 AM EDT active Omeprazo le 20 MG eCW1 ([facility]) Omeprazole 20 MG Delayed Release Oral Capsule Omeprazole 20 MG 06/11/2020 12:00:00 AM EDT suspended Omepr azole 20 MG eCW1 ([facility]) Omeprazole 20 MG Delayed Release Oral Capsule Omeprazole 20 MG 06/11/2020 12:00:00 AM EDT active Omeprazo le 20 MG eCW1 ([facility]) Omeprazole 20 MG Delayed Release Oral Capsule Omeprazole 20 MG 06/11/2020 12:00:00 AM EDT active Omeprazo le 20 MG eCW1 ([facility]) Omeprazole 20 MG Delayed Release Oral Capsule Omeprazole 20 MG 06/11/2020 12:00:00 AM EDT suspended Omepr azole 20 MG eCW1 ([facility]) Omeprazole 20 MG Delayed Release Oral Capsule Omeprazole 20 MG 06/11/2020 12:00:00 AM EDT active Omeprazo le 20 MG eCW1 ([facility]) Omeprazole 20 MG Delayed Release Oral Capsule Omeprazole 20 MG 06/11/2020 12:00:00 AM EDT active Omeprazo le 20 MG eCW1 ([facility]) Omeprazole 20 MG Delayed Release Oral Capsule Omeprazole 20 MG 06/11/2020 12:00:00 AM EDT active Omeprazo le 20 MG eCW1 ([facility]) Omeprazole 20 MG Delayed Release Oral Capsule Omeprazole 20 MG 06/11/2020 12:00:00 AM EDT active Omeprazo le 20 MG eCW1 ([facility]) Omeprazole 20 MG Delayed Release Oral Capsule Omeprazole 20 MG 06/11/2020 12:00:00 AM EDT active Omeprazo le 20 MG eCW1 ([facility]) Omeprazole 20 MG Delayed Release Oral Capsule Omeprazole 20 MG 06/11/2020 12:00:00 AM EDT suspended Omepr azole 20 MG eCW1 ([facility]) Omeprazole 20 MG Delayed Release Oral Capsule Omeprazole 20 MG 06/11/2020 12:00:00 AM EDT active Omeprazo le 20 MG eCW1 ([facility]) Omeprazole 20 MG Delayed Release Oral Capsule Omeprazole 20 MG 06/11/2020 12:00:00 AM EDT active Omeprazo le 20 MG eCW1 ([facility]) 400 mg 05/13/2020 12:00:00 AM EDT tablet 21 TAKE ONE TABLET BY MOUTH THREE TIMES A DAY FOR 7 DAYS TAKE ONE TABLET BY MOUTH THREE TIMES A DAY FOR 7 DAYS SOLD: 05/14/2020 [facility] Insurance Providers Payer name Policy type / Coverage type Policy ID Covered republican ID Covered republican's relationship to sotelo Policy Sotelo Plan Information [facility] [id number] SP [id number] Usp AT [facility] ([facility] [id number] Self [id number] [facility] At [facility] ([facility] [id number] Self [id number] Usp AT [facility] ([facility] [id number] Self [id number] Usp AT [facility] ([facility] [id number] Self [id number] [facility] [id number] SP [id number] [facility] [id number] xxxxxxxxxxx [id number] Sherry [id number] [facility] [id number] Sherry [id number] xxxxxxxxxxx [id number] [facility] / [id number] Parent [id number] ANSI-Commercial [id number] [facility] Commercial [id number] Self [id number] [facility] [id number] Family Dependent [id number] [employer] [facility] [place] [id number] [place]2 [id number] [employer] Commercial [id number] Family Dependent [id number] [employer] [facility]po[employer] Commercial [id number] Self [id number] [facility] [id number] SP [id number] [employer] [facility] [place] [id number] MO2 [id number] [facility] O [id number] S [id number] HMO MEDICAID OTHER [id number] SP [id number] ANSI-Commercial [id number] ANSI-Commercial [id number] ANSI-Commercial [id number] ANSI-Commercial [id number] ANSI-Commercial [id number] ANSI-Commercial [id number] ANSI-Commercial [id number] ANSI-Commercial [id number] Problems, Conditions, and Diagnoses Code Display Name Description Problem Type Effective Dates Data Source(s) J35.03 Chronic adenotonsillitis Chronic adenotonsillitis Prob [facility] 06/02/2021 12:00:00 AM EDT MEDENT ([facility], ) K21.9 [id number] Gastroesophageal ref lux disease, unspecified whether esophagitis present Problem 09/02/2020 12:00:00 AM EST eCW1 ([facility]) I95.1 Orthostatic hypotension Orthostatic hypotension [id number] 06/01/2020 12:00:00 AM EDT [facility] R42 Dizziness Dizziness [id number] 06/01/2020 12:00:00 AM ED T [facility] Surgeries/Procedures Procedure Description Date Indications Data Source(s) ECG ROUTINE ECG W/LEAST 12 LDS W/I&R <td>POCT AMB EKG</td><td>Routine</td><td>08/05/2020 4:35 PM EST</td><td> Orthostatic hypotension</td><td> </td> 08/05/2020 09:35:00 PM EST Orthostatic hypotension [facility] Orthostatic hypotension LARYNGOSCOPY FLEXIBLE FIBEROPTIC DIAGNOSTIC 07/15/2020 12:00:00 AM EST MEDENT ([facility] ) Results ID Date Data Source GATS (NEGATIVE STREP SCREEN) 03/05/2021 12:00:00 AM EDT eCW1 ([facility]) Name Value Range Interpretation Code Description Data Shaneka rce(s) Supporting Document(s) FULL REPORT IN LAB NOTES (eCW and Medent). GATS CULTURE (NEG STREP SCR) eCW1 ([facility]) ID Date Data Source [id number] 06/05/2020 08:44:00 AM EDT [facility] Name Value Range Interpretation Code Description Data Shaneka rce(s) Supporting Document(s) SARS coronavirus 2 RNA [facility] This lab was ordered by [facility] an d reported by [facility]. Procedure Social History Code Duration Value Status Description Data Source(s ) Smoking 04/12/2021 12:00:00 AM EDT Never Smoker completed Never S moker eCW1 ([facility]) Smoking 04/12/2021 12:00:00 AM EDT Never Smoker completed Never S moker eCW1 ([facility]) Smoking 03/25/2021 12:00:00 AM EDT Never Smoker completed Never S moker eCW1 ([facility]) Smoking 03/05/2021 12:00:00 AM EDT Never Smoker completed Never S moker eCW1 ([facility]) Smoking 10/08/2020 12:00:00 AM EST Never Smoker completed Never S moker eCW1 ([facility]) Smoking 10/08/2020 12:00:00 AM EST Never Smoker completed Never S moker eCW1 ([facility]) Smoking 10/08/2020 12:00:00 AM EST Never Smoker completed Never S moker eCW1 ([facility]) Smoking 10/08/2020 12:00:00 AM EST Never Smoker completed Never S moker eCW1 ([facility]) Smoking 10/08/2020 12:00:00 AM EST Never Smoker completed Never S moker eCW1 ([facility]) Smoking 09/02/2020 12:00:00 AM EST Never Smoker completed Never S moker eCW1 ([facility]) Smoking 09/02/2020 12:00:00 AM EST Never Smoker completed Never S moker eCW1 ([facility]) Smoking 09/02/2020 12:00:00 AM EST Never Smoker completed Never S moker eCW1 ([facility]) Smoking 09/02/2020 12:00:00 AM EST Never Smoker completed Never S moker eCW1 ([facility]) Alcohol intake 08/05/2020 12:00:00 AM EST Yes completed [facility] Smoking 08/05/2020 12:00:00 AM EST Never smoker completed Never s moker [facility] Smoking 06/11/2020 12:00:00 AM EDT Never Smoker completed Never S moker eCW1 ([facility]) Smoking 06/11/2020 12:00:00 AM EDT Never Smoker completed Never S moker eCW1 ([facility]) Smoking 06/11/2020 12:00:00 AM EDT Never Smoker completed Never S moker eCW1 ([facility]) Smoking 06/11/2020 12:00:00 AM EDT Never Smoker completed Never S moker eCW1 ([facility]) Vital Signs ID Date Data Source UNK Name Value Range Interpretation Code Description Data Source(s) [place] body weight 120 [lb_av] 120 [lb_av] MEDEN T ([facility], ) Body weight 70.762 kg 70.762 kg MEDENT ([facility]) Body surface area Derived from formula 1.76 m2 1.76 m2 [facility] Systolic blood pressure 102 mm[Hg] 102 mm[Hg] M EDENT ([facility], ) Diastolic blood pressure 70 mm[Hg] 70 mm[Hg] MEDENT ([facility] ) Heart rate 105 /min 105 /min [facility] ([facility]) Oxygen saturation in Arterial blood by Pulse oximetry 98 % 98 % [facility] ([facility]) Body height 64 [in_i] 64 [in_i] [facility] ([facility]) 5'4" Body weight 156.00 [lb_av] 156.00 [lb_av] MEDEN T ([facility]) Body mass index (BMI) [Ratio] 26.8 kg/m2 26.8 k g/m2 [facility] ([facility]) Body weight 156 [lb_av] 156 [lb_av] eCW1 ([facility]) Body height 63 [in_i] 63 [in_i] eCW1 (formerly [facility]) Respiratory rate 18 /min 18 /min eCW1 ([facility]) Body temperature 98 [degF] 98 [degF] eCW1 ([facility]) Body mass index (BMI) [Ratio] 27.63 kg/m2 27.63 kg/m2 eCW1 ([facility]) Systolic blood pressure 98 mm[Hg] 98 mm[Hg] e CW1 ([facility]) Diastolic blood pressure 60 mm[Hg] 60 mm[Hg] eCW1 ([facility]) Heart rate 126 /min 126 /min eCW1 (Formerly [facility], [facility]) Diastolic blood pressure 72 mm[Hg] 72 mm[Hg] eCW1 ([facility]) Body temperature 98.0 [degF] 98.0 [degF] eCW1 ( [facility]) Systolic blood pressure 100 mm[Hg] 100 mm[Hg] e CW1 ([facility]) Body weight 157 [lb_av] 157 [lb_av] eCW1 ([facility]) Body height 63 [in_i] 63 [in_i] eCW1 (formerly [facility]) Body mass index (BMI) [Ratio] 27.81 kg/m2 27.81 kg/m2 eCW1 ([facility]) Heart rate 109 /min 109 /min eCW1 (Formerly [facility], later [facility]) Respiratory rate 18 /min 18 /min eCW1 ([facility]) Body weight 155.6 [lb_av] 155.6 [lb_av] eCW1 ([facility]) Body height 63 [in_i] 63 [in_i] eCW1 (formerly [facility]) Body mass index (BMI) [Ratio] 27.56 kg/m2 27.56 kg/m2 eCW1 ([facility]) Heart rate 115 /min 115 /min eCW1 (Formerly [facility], [facility]) Respiratory rate 18 /min 18 /min eCW1 ([facility]) Body temperature 97.6 [degF] 97.6 [degF] eCW1 ( [facility]) Systolic blood pressure 114 mm[Hg] 114 mm[Hg] e CW1 ([facility]) Diastolic blood pressure 68 mm[Hg] 68 mm[Hg] eCW1 ([facility]) Body weight 145.00 [lb_av] 145.00 [lb_av] MEDEN T ([facility]) Body height 64 [in_i] 64 [in_i] [facility] ([facility]) 5'4" Body mass index (BMI) [Ratio] 24.9 kg/m2 24.9 k g/m2 [facility] ([facility]) [place] body weight 120 [lb_av] 120 [lb_av] MEDEN T ([facility]) Body weight 65.772 kg 65.772 kg [facility] ([facility]) Body surface area Derived from formula 1.71 m2 1.71 m2 [facility] ([facility]) Body height 64 [in_i] 64 [in_i] [facility] 5'4" Body weight 145.00 [lb_av] 145.00 [lb_av] MEDEN T ([facility]) Body mass index (BMI) [Ratio] 24.9 kg/m2 24.9 k g/m2 [facility] ([facility]) [place] body weight 120 [lb_av] 120 [lb_av] MEDEN T ([facility]) Body weight 65.772 kg 65.772 kg [facility] ([facility]) Body surface area Derived from formula 1.71 m2 1.71 m2 [facility] ([facility]) Body weight 151 [lb_av] 151 [lb_av] eCW1 ([facility]) Body height 63 [in_i] 63 [in_i] eCW1 (formerly [facility]) Body mass index (BMI) [Ratio] 26.75 kg/m2 26.75 kg/m2 eCW1 ([facility]) Heart rate 126 /min 126 /min eCW1 ([facility], [facility]) Respiratory rate 18 /min 18 /min eCW1 ([facility]) Body temperature 99.5 [degF] 99.5 [degF] eCW1 ( [facility]) Systolic blood pressure 108 mm[Hg] 108 mm[Hg] e CW1 ([facility]) Diastolic blood pressure 72 mm[Hg] 72 mm[Hg] eCW1 ([facility]) Systolic blood pressure 100 mm[Hg] 100 mm[Hg] [facility] Diastolic blood pressure 58 mm[Hg] 58 mm[Hg] [facility] Heart rate 72 /min 72 /min [facility] Body height 162.6 cm 162.6 cm [facility] Body weight 67.132 kg 67.132 kg [facility] Body mass index (BMI) [Ratio] 25.40 kg/m2 25.40 kg/m2 [facility] Oxygen saturation in Arterial blood by Pulse oximetry 98 % 98 % [facility] Body mass index (BMI) [Ratio] 24.9 kg/m2 24.9 k g/m2 [facility] ([facility] ) [place] body weight 120 [lb_av] 120 [lb_av] MEDEN T ([facility]) Body weight 65.772 kg 65.772 kg [facility] ([facility], ) Body height [Percentile] 45 % 45 % MEDMERE ([facility]) Body surface area Derived from formula 1.71 m2 1.71 m2 [facility] ([facility]) Body height 64 [in_i] 64 [in_i] [facility] ([facility]) 5'4" Body weight 145.00 [lb_av] 145.00 [lb_av] MEDEN T ([facility]) Body weight 140 [lb_av] 140 [lb_av] eCW1 ([facility]) Body height 63 [in_i] 63 [in_i] eCW1 (formerly [facility]) Body mass index (BMI) [Ratio] 24.80 kg/m2 24.80 kg/m2 eCW1 ([facility]) Heart rate 97 /min 97 /min eCW1 ([facility]ly [facility], [facility]) Respiratory rate 18 /min 18 /min eCW1 ([facility]) Body temperature 97.8 [degF] 97.8 [degF] eCW1 ( [facility]) Systolic blood pressure 110 mm[Hg] 110 mm[Hg] e CW1 ([facility]) Diastolic blood pressure 64 mm[Hg] 64 mm[Hg] eCW1 ([facility]) Patient Treatment Plan of Care Planned Activity Planned Date Details Description Data Source (s) Amoxicillin 500 MG Oral Tablet 04/12/2021 12:00:00 AM EDT eCW1 ([facility]) Amoxicillin 500 MG Oral Tablet 04/12/2021 12:00:00 AM EDT eCW1 ([facility]) Paroxetine 10 MG Oral Tablet [Paxil] 03/25/2021 12:00:00 AM EDT eCW1 ([facility]) PARoxetine HCl 10 MG 03/05/2021 12:00:00 AM EDT eCW1 ([facility]) Paroxetine 30 MG Oral Tablet [Paxil] 10/26/2020 12:00:00 AM EST eCW1 ([facility]) Paroxetine 30 MG Oral Tablet [Paxil] 10/26/2020 12:00:00 AM EST eCW1 ([facility]) Paroxetine 30 MG Oral Tablet [Paxil] 10/26/2020 12:00:00 AM EST eCW1 ([facility]) Paroxetine 30 MG Oral Tablet [Paxil] 10/26/2020 12:00:00 AM EST eCW1 ([facility]) Omeprazole 40 MG Delayed Release Oral Capsule 07/15/2020 12:00:00 A M EST [facility] PARoxetine (PAXIL) 20 MG tablet 07/14/2020 12:00:00 AM [facility] Omeprazole 20 MG Delayed Release Oral Capsule 06/11/2020 12:00:00 A M EDT eCW1 ([facility]) Omeprazole 20 MG Delayed Release Oral Capsule 06/11/2020 12:00:00 A M EDT eCW1 ([facility]) Omeprazole 20 MG Delayed Release Oral Capsule 06/11/2020 12:00:00 A M EDT eCW1 ([facility]) Omeprazole 20 MG Delayed Release Oral Capsule 06/11/2020 12:00:00 A M EDT eCW1 ([facility])
[2021-06-28] MEDS ORDERED: LR 1,000 ML IV ONE (10:30)
[2021-06-28] MEDS ORDERED: dexameTHASONE 4 MG/ML 1ML VIAL (J1100 PER 1MG) As Ordered ONE (11:16)
[2021-06-28] MEDS ORDERED: LIDOCAINE 2% 100MG/5ML SDV (FOR ANES.) As Ordered ONE (11:16)
[2021-06-28] MEDS ORDERED: ROCURONIUM BROMIDE 50 MG/5 ML VIAL As Ordered ONE (11:16)
[2021-06-28] MEDS ORDERED: fentaNYL 100 MCG/2 ML INJECTION (J3010) As Ordered ONE ×2 (11:16→13:12)
[2021-06-28] MEDS ORDERED: propofoL 200 MG/20 ML VIAL As Ordered ONE (11:16)
[2021-06-28] MEDS ORDERED: ONDANSETRON 4MG/2ML VIAL As Ordered ONE (11:16)
[2021-06-28] MEDS ORDERED: MIDAZOLAM INJ 2MG/2ML VIAL (J2250 PER 1MG) As Ordered ONE (11:17)
[2021-06-28] MEDS ORDERED: SUGAMMADEX SODIUM 500 MG/5 ML VIAL (BRIDION) As Ordered ONE (11:24)
[2021-06-28] MEDS ORDERED: METHYLENE BLUE 0.5% (5MG/ML) 10 ML AMP (PROVAYBLUE) As Ordered ONE (12:15)
[2021-06-28] MEDS ORDERED: BUPIVACAINE/EPIN 0.5% 30 ML VIAL As Ordered ONE (12:16)
[2021-06-28] MEDS ORDERED: OXYMETAZOLINE 0.05% NASAL SPRAY (AFRIN) As Ordered ONE (12:16)
[2021-06-28] MEDS ORDERED: ACETAMINOPHEN 1000MG 100ML IV BTL (OFIRMEV) (J0131 PER 10MG) As Ordered ONE (13:07)
[2021-06-28] MEDS ORDERED: METOCLOPRAMIDE INJ 10MG/2ML VIAL (J2765 PER 1) As Ordered ONE (13:07)
[2021-06-28] MEDS ORDERED: MEPERIDINE INJ 25 MG/ML VIAL (J2175) As Ordered ONE (13:57)
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
[2021-06-28] MEDS ORDERED: ONDANSETRON 4MG/2ML VIAL IV PRN ×2 (14:05→14:10)
[2021-06-28] MEDS ORDERED: LR 1,000 ML IV SCH ×2 (14:05→14:10)
[2021-06-28] MEDS ORDERED: METOCLOPRAMIDE INJ 10MG/2ML VIAL (J2765 PER 1) IV PRN (14:05)
[2021-06-28] MEDS ORDERED: PERCOCET 5MG/325MG TAB PO PRN (14:05)
[2021-06-28] MEDS ORDERED: fentaNYL 100 MCG/2 ML INJECTION (J3010) IV PRN (14:05)
[2021-06-28] MEDS: MEPERIDINE INJ 25 MG/ML VIAL (J2175) IV PRN ×2 (14:08→14:15)
[2021-06-28] MEDS ORDERED: HYDROcodone/APAP LIQUID 7.5-325MG 15ML UDC (LORTAB ELIXIR) PO PRN (14:10)
[2021-06-28] MEDS ORDERED: MORPHINE 10 MG/ML 1ML VIAL (J2270) IV PRN (14:10)
[2021-06-28 16:10] VITALS: BP 118/73
[2021-07-02] MEDS ORDERED: HYDR5SYP PO (18:55)
== END 2021-06-28 16:28 | disposition home or self-care (01) ==
LOC: M SDC 09:48
PROVIDERS: ATTEND Otolaryngology
DX: J35.03 Chronic tonsillitis and adenoiditis (principal); K21.9 Gastro-esophageal reflux disease without esophagitis; R12 Heartburn; M54.9 Dorsalgia, unspecified; L70.9 Acne, unspecified; F41.9 Anxiety disorder, unspecified; F32.9 Major depressive disorder, single episode, unspecified; R51.9 Headache, unspecified; Z79.899 Other long term (current) drug therapy
CPT/HCPCS: 42821; 81025; 88302; J0131; J1100; J2175; J2250; J2405; J2765; J3010; Q9968

== ENCOUNTER → 2023-05-31 | Outpatient (REF) | payer SELFPAY ==
[~2023-05-31] MED LIST changes: +ETON68IM SC; +HYDR5SYP PO; -NEXP1IMP SC; -PAXI10TA12 PO; +PAXI10TA13 PO
== END ==
LOC: M SFHCWAGY 17:36
PROVIDERS: ATTEND Nurse Practitioner Family
DX: Z12.4 Encounter for screening for malignant neoplasm of cervix (principal)
CPT/HCPCS: 81025; G0123; G0463